=== PATIENT | female | born 1965 | race Caucasian/White ===

== ENCOUNTER 2017-01-07 17:07 | Emergency (ER) | payer BC ==
[2017-01-07] MEDS ORDERED: Acetaminophen/HYDROcodone 325-5 MG Tab PO ONE (17:41)
--- NOTE | 2017-01-07 17:47 | EDM.PDOC ---
ED HISTORY OF PRESENT ILLNESS - General Chief Complaint: Respiratory Problem Stated Complaint: [place] [facility] [place] Time Seen by Provider: 01/07/17 17:32 Source of Information: Reports: Patient History Limitations: Reports: No limitations - History of Present Illness INITIAL COMMENTS - FREE TEXT/NARRATIVE: Patient is a 51-year-old female with a history of diabetes and spontaneous pneumothorax to the right lung. She presents to the ED today complaining of increasing left lateral chest discomfort that started approximately 2 days ago with excessive coughing. Patient was evaluated here in the ED approximately one week ago to which a chest x-ray and influenza screen were obtained with negative findings. Patient was seen in the [facility] by Dr. De La Cruz yesterday and prescribed Z-Chip and also Phenergan with codeine. Patient states that she had mentioned the chest discomfort yesterday with no testing obtained. States she has popping, clicking sensation to the left lateral lower ribs. States the pain is worsened with coughing, deep inspiration, movement, and palpation. Patient states she has a history of spontaneous pneumothorax to the right lower lung requiring no surgical intervention approximately 6 years ago. States cold and coughing symptoms have been present for the past 12 days. States she has been congested and coughing up clear thick phlegm. Timing/Duration: Reports: Constant, Waxing/waning Severity: moderate Location, General: Reports: chest Quality: Reports: Ache, Sharp, Stabbing Improves with: Reports: Rest Worsens with: Reports: Other (Coughing, palpation, deep inspiration, movement) Associated Symptoms (General): Reports: chest pain, cough w sputum, shortness of breath (Mild). 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 (see below) (see hpi) - Related Data Allergies/ADRs: Allergies Allergy/AdvReac Type Severity Reaction Status Date / Time naproxen Allergy Hives Verified 01/07/17 17:23 Home Meds: Home Meds Allopurinol [Zyloprim] 300 mg PO DAILY 04/04/14 [History] Furosemide [Lasix] 20 mg PO DAILY 04/04/14 [History] Levothyroxine Sodium [Levoxyl] 150 mcg PO DAILY 04/04/14 [History] Lisinopril 5 mg PO DAILY 04/04/14 [History] Metoprolol Succinate 25 mg PO DAILY 04/04/14 [History] metFORMIN [metFORMIN XR] 500 mg PO DAILY 04/04/14 [History] Albuterol [Ventolin HFA] 1 - 2 puff INH Q6H PRN #1 inhaler 12/28/16 [Rx] Promethazine HCl/Codeine [Prometh-Codein 6.25-10 mg/5 ml] 5 ml PO Q8HR PRN #100 ml 12/28/16 [Rx] Rosuvastatin [Crestor] 20 mg PO BEDTIME 12/28/16 [History] Apremilast [Otezla] 60 mg PO BID 01/07/17 [History] Fenofibric Acid (Choline) [Fenofibric Acid] 1 tab PO DAILY 01/07/17 [History] Losartan [Cozaar] 1 tab PO DAILY 01/07/17 [History] glipiZIDE [Glipizide ER] 10 mg PO DAILY 01/07/17 [History] Past Medical History Cardiovascular History: Reports: High cholesterol, Hypertension Respiratory History: Reports: Bronchitis, recurrent Gastrointestinal History: Reports: GERD Endocrine/Metabolic History: Reports: Diabetes, type II, Hypothyroidism Dermatologic History: Reports: Psoriasis - Past Surgical History GI Surgical History: Reports: Cholecystectomy, Colonoscopy, Hernia, abdominal, Other (see below) Other GI Surgeries/Procedures: colon surgery and removed about 5 inches Female Surgical History: Reports: Hysterectomy Social & Family History - Family History Family Medical History: Noncontributory - Tobacco Use Smoking Status *Q: Never Smoker Second Hand Smoke Exposure: No - Caffeine Use Caffeine Use: Reports: Coffee - Alcohol Use Days Per Week of Alcohol Use: 1 Number of Drinks Per Day: 2 Total Drinks Per Week: 2 - Recreational Drug Use Recreational Drug Use: No ED ROS GENERAL - Review of Systems Review Of Systems: See Below Constitutional: Reports: no symptoms HEENT: Reports: Other (Sinus congestion) Respiratory: Reports: shortness of breath (Mild), wheezing, pleuritic chest pain , cough, sputum. Denies: hemoptysis Cardiovascular: Reports: Chest pain. Denies: Dyspnea on exertion, Lightheadedness, Syncope GI/Abdominal: Denies: Abdominal pain, Nausea, Vomiting : Reports: no symptoms ED EXAM, GENERAL - Physical Exam Exam: See Below Exam Limited By: No limitations General Appearance: alert, WD/WN, mild distress Eye Exam: bilateral eye: PERRL Ears: hearing grossly normal Nose: normal inspection Throat/Mouth: Normal voice, No airway compromise Neck: normal inspection, supple Respiratory/Chest: no respiratory distress, lungs clear, normal breath sounds, no accessory muscle use, other (Tenderness noted to the left lateral lower ribs along the axillary line with palpation. There is a small click/popping sensation with deep inspiration. No deformity noted) Cardiovascular: normal peripheral pulses, regular rate, rhythm GI/Abdominal: normal bowel sounds, soft, non tender Back Exam: normal inspection, full range of motion Extremities: normal inspection, non-tender, no pedal edema, normal capillary refill Neurological: alert, oriented, CN II-XII intact, normal cognition, no motor/ sensory deficits Psychiatric: normal affect, normal mood Skin Exam: Warm, Dry, Intact, Normal color, No rash Course - Vital Signs Last Recorded V/S: Last Vital Signs Temp 97.9 F 01/07/17 17:13 Pulse 85 01/07/17 19:20 Resp 18 01/07/17 19:20 BP 142/88 H 01/07/17 19:20 Pulse Ox 98 01/07/17 19:20 - Orders/Labs/Meds Orders: Active Orders 24 hr Category Date Time Status CXR [Chest 2V] [CR] Stat Exams 01/07/17 17:39 Taken Meds: Medications Discontinued Medications Generic Name Dose Route Start Last Admin Trade Name Catrachito PRN Reason Stop Dose Admin Acetaminophen/Hydrocodone Bitart 1 tab 01/07/17 17:41 01/07/17 17:45 [place] 325-5 Mg PO 01/07/17 17:42 1 tab ONETIME ONE Administration - Re-Assessments/Exams Free Text/Narrative Re-Assessment/Exam: Patient has no positive findings for PERC RULE. Thus low probability for PE. Patient was advised by [facility] that CXR is required. Patient request chest x-ray. This has been ordered. No additional labs or studies will be ordered at this time. Reviewed previous emergency department visit. For pain order [place] 5-325 tabs one by mouth. 01/07/17 17:[address] Moreno. No acute findings noted. Will discharge patient home with prescription for norco 5-325. Discharge instructions has documented. Departure - Departure Time of Disposition: 18:56 Disposition: Home, Self-Care 01 Condition: good Clinical Impression: Left-sided chest wall pain, Cough Instructions: Chest Wall Pain, [id number] Referrals: Esa Springer MD [Primary Care Provider] - Forms: ED Department Discharge, Return to Work/School Form Additional Instructions: Continue taking z-pack and cough syrup as prescribed. For pain take tylenol 650mg every 6 hours as needed. For severe pain take norco 5/325 1 tab every 6 hours as needed. Push the fluids. Ensure adequate rest. No driving this evening nor while taking the norco. Can also put heating pad to the affected area for pain relief. Followup with PCP in the next week if symptoms have not resolved. Return to the E.D. for any new or worsening symptoms. - My Orders Last 24 Hours: My Active Orders 01/07/17 17:39 CXR [Chest 2V] [CR] Stat - Assessment/Plan Last 24 Hours: My Active Orders 01/07/17 17:39 CXR [Chest 2V] [CR] Stat
[2017-01-07 19:22] VITALS: BP 142/88
--- NOTE | 2017-01-08 10:16 | CR ---
Chest: Two views of the chest were obtained. Comparison: Previous chest x-ray of 12/28/16. Heart size and mediastinum are normal. Lungs are clear. Bony structures are unremarkable for the patient's age. Impression: 1. Nothing acute is identified on two-view chest x-ray. Diagnostic code #1
== END 2017-01-07 19:15 | disposition home or self-care (01) ==
LOC: JD.ED 17:07
DX: R07.89 Other chest pain (principal); R05 Cough; I10 Essential (primary) hypertension; E78.00 Pure hypercholesterolemia, unspecified; K21.9 Gastro-esophageal reflux disease without esophagitis; E11.9 Type 2 diabetes mellitus without complications; L40.9 Psoriasis, unspecified; Z90.49 Acquired absence of other specified parts of digestive tract; Z98.890 Other specified postprocedural states; Z90.710 Acquired absence of both cervix and uterus; Z79.84 Long term (current) use of oral hypoglycemic drugs; Z79.899 Other long term (current) drug therapy; Z88.8 Allergy status to other drugs, medicaments and biological substances
CPT/HCPCS: 71020; 99285; A9270; 99283

== ENCOUNTER 2019-07-29 10:37 | Observation (INO) | payer BC ==
[2019-07-29] MEDS ORDERED: Sodium Chloride 0.9% 10 ML Syringe FLUSH PRN (11:13)
[2019-07-29] MEDS ORDERED: Sodium Chloride 0.9% 1,000 ML IV ONE ×2 (11:13→13:30)
--- NOTE | 2019-07-29 11:22 | EDM.PDOC ---
ED HPI GENERAL MEDICAL PROBLEM - General Chief Complaint: General Stated Complaint: FEELS LIKE PASSING OUT Time Seen by Provider: 07/29/19 11:00 Source of Information: Reports: Patient History Limitations: Reports: No Limitations - History of Present Illness INITIAL COMMENTS - FREE TEXT/NARRATIVE: 54-year-old female present for evaluation and treatment of lightheadedness. Patient reports between 9:30 and 10:00 this morning she was sitting at her desk at work. She states that she got up and walked to the back room to get [employer] delivery. She states that her left eye started burning and her left upper lip started a burning. She states that she couldn't talk or write. She felt like her throat was swelling. She also felt like her legs were weak and she was lightheaded. She did not fall or pass out. She reports at this time upon arrival in the ER the burning to her lip and have improved. She states that she is now talking like normal and at this time she is feeling much better. She states this whole episode lasted maybe 30 minutes to an hour. She she reports weakness in the bilateral legs which is also improving as well. She denies any chest pain or shortness of breath associated with this. A friend is present at the bedside and states that she sounded like she was short of breath. She did have a headache that is now improving. She denies any numbness or tingling in her arms or legs. At this time she only feels shaky. She denies any recent trauma such as falls or motor vehicle accidents. Denies any recent cough or cold symptoms. She states that she did take to sips of her coffee earlier before this started but that was not seen on the normal. Primary care providers Dr. Crespo. She is a type II diabetic. She is not watch he closely normally. No history of any CVAs or MIs. Onset: Today, Sudden Duration: Improving - Related Data Allergies Allergy/AdvReac Type Severity Reaction Status Date / Time naproxen Allergy Hives Verified 07/29/19 10:52 Home Meds: Home Meds Allopurinol [Zyloprim] 300 mg PO DAILY 04/04/14 [History] Furosemide [Lasix] 20 mg PO DAILY 04/04/14 [History] Levothyroxine Sodium [Levoxyl] 150 mcg PO DAILY 04/04/14 [History] Metoprolol Succinate 50 mg PO DAILY 04/04/14 [History] metFORMIN [metFORMIN XR] 500 mg PO BID 04/04/14 [History] Rosuvastatin [Crestor] 20 mg PO BEDTIME 12/28/16 [History] Apremilast [Otezla] 30 mg PO BID 01/07/17 [History] Fenofibric Acid (Choline) [Fenofibric Acid] 145 mg PO DAILY 01/07/17 [History] Losartan [Cozaar] 1 tab PO DAILY 01/07/17 [History] glipiZIDE [Glipizide ER] 10 mg PO DAILY 01/07/17 [History] Aspirin [Halfprin] 81 mg PO DAILY 07/29/19 [History] Omeprazole 20 mg PO DAILY 07/29/19 [History] PARoxetine [Paxil] 10 mg PO BEDTIME 07/29/19 [History] Pramipexole [Mirapex] 1 mg PO DAILY 07/29/19 [History] Past Medical History Cardiovascular History: Reports: High Cholesterol, Hypertension Respiratory History: Reports: Bronchitis, Recurrent Gastrointestinal History: Reports: GERD Endocrine/Metabolic History: Reports: Diabetes, Type II, Hypothyroidism Dermatologic History: Reports: Psoriasis - Past Surgical History GI Surgical History: Reports: Cholecystectomy, Colonoscopy, Hernia, Abdominal Female Surgical History: Reports: Hysterectomy Social & Family History - Family History Family Medical History: Noncontributory - Tobacco Use Smoking Status *Q: Never Smoker - Caffeine Use Caffeine Use: Reports: None - Recreational Drug Use Recreational Drug Use: No ED ROS GENERAL - Review of Systems Review Of Systems: See Below Constitutional: Denies: Fever HEENT: Reports: Throat Swelling (earler, now reolved), Other (reports burning to the left eye and left upper lip which has now reolved) Respiratory: Denies: Shortness of Breath, Cough Cardiovascular: Denies: Chest Pain Neurological: Reports: Headache (improving), Trouble Speaking (earlier, now resolved), Weakness (bilteral lower extremities, improvign), Other (unable to write earlier, now resolved). Denies: Numbness, Syncope, Tingling ED EXAM, GENERAL - Physical Exam Exam: See Below Exam Limited By: No Limitations General Appearance: Alert, WD/WN, No Apparent Distress Eye Exam: Bilateral Eye: EOMI, Normal Inspection, PERRL Ears: Normal External Exam, Normal Canal, Hearing Grossly Normal, Normal TMs Nose: Normal Inspection Throat/Mouth: Normal Inspection, Normal Lips, Normal Voice, No Airway Compromise Neck: Normal Inspection, Supple, Non-Tender, Full Range of Motion. No: Carotid Bruit Respiratory/Chest: No Respiratory Distress, Lungs Clear, Normal Breath Sounds Cardiovascular: Normal Peripheral Pulses, Regular Rate, Rhythm, No Edema, No Murmur GI/Abdominal: No Distention Extremities: Normal Inspection, Normal Range of Motion Neurological: Alert, Oriented, CN II-XII Intact, Normal Cognition, Normal Gait, No Motor/Sensory Deficits, Other (Investment Strategist strength, dorsiflexion and plantar flexion are all 5 out of 5 bilaterally. Normal [id number] testing. No pronator drift. Normal [id number] testing.) Psychiatric: Normal Affect, Normal Mood Skin Exam: Warm, Dry, Normal Color EKG INTERPRETATION EKG Date: 07/29/19 Time: 11:20 Rhythm: NSR Rate (Beats/Min): 54 Luna: Normal P-Wave: Present QRS: Normal ST-T: Normal QT: Normal EKG Interpretation Comments: NSR at 54 bpm. Q waves inferior and anterior leads. Reviewed by myself and Dr. Moreno Course - Vital Signs Last Recorded V/S: Last Vital Signs Temp 98.1 F 07/29/19 10:48 Pulse 55 L 07/29/19 10:48 Resp 16 07/29/19 10:48 BP 155/92 H 07/29/19 10:48 Pulse Ox 97 07/29/19 10:48 Orthostatic Blood Pressure [ 155/82 Standing] Orthostatic Blood Pressure [ 168/77 Sitting] Orthostatic Blood Pressure [ 156/74 Supine] - Orders/Labs/Meds Orders: Active Orders 24 hr Category Date Time Status Patient Status [ADT] Routine ADT 07/29/19 13:52 Ordered Blood Glucose Check, Bedside [RC] ONETIME Care 07/29/19 10:58 Active Cardiac Monitoring [RC] . DIRECTED Care 07/29/19 11:13 Active EKG Documentation Completion [RC] ASDIRECTED Care 07/29/19 11:13 Active Orthostatic Vital Signs [RC] ASDIRECTED Care 07/29/19 10:59 Active Peripheral IV Care [RC] . DIRECTED Care 07/29/19 11:13 Active Sodium Chloride 0.9% [Normal Saline] 1,000 ml Med 07/29/19 13:30 Ordered IV ONETIME Sodium Chloride 0.9% [Saline Flush] Med 07/29/19 11:13 Active 10 ml FLUSH ASDIRECTED PRN Peripheral IV Insertion Adult [OM.PC] Routine Oth 07/29/19 11:13 Ordered EKG 12 Lead [EK] Stat Ther 07/29/19 11:13 Ordered Medication Orders Sodium Chloride (Normal Saline) 1,000 mls @ 100 mls/hr IV ONETIME ONE Stop: 07/29/19 23:29 Sodium Chloride (Saline Flush) 10 ml FLUSH ASDIRECTED PRN PRN Reason: Keep Vein Open Last Admin: 07/29/19 11:56 Dose: 10 ml Labs: Laboratory Tests 07/29/19 07/29/19 07/29/19 Range/Units 11:35 11:35 11:35 WBC 5.59 (3.98-10.04) K/mm3 RBC 4.57 (3.98-5.22) M/mm3 Hgb 12.7 (11.2-15.7) gm/dl Hct 39.5 (34.1-44.9) % MCV 86.4 (79.4-94.8) fl MCH 27.8 (25.6-32.2) pg MCHC 32.2 (32.2-35.5) g/dl RDW Std Deviation 41.4 (36.4-46.3) fL Plt Count 309 (182-369) K/mm3 MPV 9.8 (9.4-12.3) fl Neut % (Auto) 55.2 (34.0-71.1) % Lymph % (Auto) 32.7 (19.3-51.7) % [place] % (Auto) 9.3 (4.7-12.5) % Eos % (Auto) 2.3 (0.7-5.8) Baso % (Auto) 0.5 (0.1-1.2) % Neut # (Auto) 3.08 (1.56-6.13) K/mm3 Lymph # (Auto) 1.83 (1.18-3.74) K/mm3 [place] # (Auto) 0.52 H (0.24-0.36) K/mm3 Eos # (Auto) 0.13 (0.04-0.36) K/mm3 Baso # (Auto) 0.03 (0.01-0.08) K/mm3 Sodium 139 (136-145) mEq/L Potassium 4.1 (3.5-5.1) mEq/L Chloride 105 (98-107) mEq/L Carbon Dioxide 25 (21-32) mEq/L Anion Gap 13.1 (5-15) BUN 21 H (7-18) mg/dL Creatinine 0.8 (0.55-1.02) mg/dL Est Cr Clr Drug Dosing 60.66 mL/min Estimated GFR (MDRD) > 60 (>60) mL/min BUN/Creatinine Ratio 26.3 H (14-18) Glucose 93 (74-106) mg/dL POC Glucose (70-105) mg/dL Calcium 9.8 (8.5-10.1) mg/dL Magnesium 1.8 (1.8-2.4) mg/dl Total Bilirubin 0.3 (0.2-1.0) mg/dL AST 26 (15-37) U/L ALT 66 H (14-59) U/L Alkaline Phosphatase 63 (46-116) U/L Troponin I < 0.017 (0.00-0.056) ng/mL Total Protein 7.8 (6.4-8.2) g/dl Albumin 4.0 (3.4-5.0) g/dl Globulin 3.8 gm/dL Albumin/Globulin Ratio 1.1 (1-2) TSH 3rd Generation 0.415 (0.358-3.74) uIU/mL Urine Color (Yellow) Urine Appearance (Clear) Urine pH (5.0-8.0) Ur Specific [place] (1.005-1.030) Urine Protein (Negative) Urine Glucose (UA) (Negative) Urine Ketones (Negative) Urine Occult Blood (Negative) Urine Nitrite (Negative) Urine Bilirubin (Negative) Urine Urobilinogen (0.2-1.0) Ur Leukocyte Esterase (Negative) Urine RBC (0-5) /hpf Urine WBC (0-5) /hpf Ur Squamous Epith Cells (0-5) /hpf Urine Bacteria (FEW) /hpf Urine Mucus (FEW) /hpf 07/29/19 07/29/19 Range/Units 12:19 12:35 WBC (3.98-10.04) K/mm3 RBC (3.98-5.22) M/mm3 Hgb (11.2-15.7) gm/dl Hct (34.1-44.9) % MCV (79.4-94.8) fl MCH (25.6-32.2) pg MCHC (32.2-35.5) g/dl RDW Std Deviation (36.4-46.3) fL Plt Count (182-369) K/mm3 MPV (9.4-12.3) fl Neut % (Auto) (34.0-71.1) % Lymph % (Auto) (19.3-51.7) % [place] % (Auto) (4.7-12.5) % Eos % (Auto) (0.7-5.8) Baso % (Auto) (0.1-1.2) % Neut # (Auto) (1.56-6.13) K/mm3 Lymph # (Auto) (1.18-3.74) K/mm3 [place] # (Auto) (0.24-0.36) K/mm3 Eos # (Auto) (0.04-0.36) K/mm3 Baso # (Auto) (0.01-0.08) K/mm3 Sodium (136-145) mEq/L Potassium (3.5-5.1) mEq/L Chloride (98-107) mEq/L Carbon Dioxide (21-32) mEq/L Anion Gap (5-15) BUN (7-18) mg/dL Creatinine (0.55-1.02) mg/dL Est Cr Clr Drug Dosing mL/min Estimated GFR (MDRD) (>60) mL/min BUN/Creatinine Ratio (14-18) Glucose (74-106) mg/dL POC Glucose 81 (70-105) mg/dL Calcium (8.5-10.1) mg/dL Magnesium (1.8-2.4) mg/dl Total Bilirubin (0.2-1.0) mg/dL AST (15-37) U/L ALT (14-59) U/L Alkaline Phosphatase (46-116) U/L Troponin I (0.00-0.056) ng/mL Total Protein (6.4-8.2) g/dl Albumin (3.4-5.0) g/dl Globulin gm/dL Albumin/Globulin Ratio (1-2) TSH 3rd Generation (0.358-3.74) uIU/mL Urine Color Light yellow (Yellow) Urine Appearance Clear (Clear) Urine pH 6.0 (5.0-8.0) Ur Specific [place] 1.020 (1.005-1.030) Urine Protein Negative (Negative) Urine Glucose (UA) Negative (Negative) Urine Ketones Negative (Negative) Urine Occult Blood Negative (Negative) Urine Nitrite Negative (Negative) Urine Bilirubin Negative (Negative) Urine Urobilinogen 0.2 (0.2-1.0) Ur Leukocyte Esterase Trace H (Negative) Urine RBC Not seen (0-5) /hpf Urine WBC 0-5 (0-5) /hpf Ur Squamous Epith Cells 5-10 H (0-5) /hpf Urine Bacteria Not seen (FEW) /hpf Urine Mucus Not seen (FEW) /hpf Meds: Medications Generic Name Dose Route Start Last Admin Trade Name Freq PRN Reason Stop Dose Admin Sodium Chloride 1,000 mls @ 100 mls/hr 07/29/19 13:30 Normal Saline IV 07/29/19 23:29 ONETIME ONE Sodium Chloride 10 ml 07/29/19 11:13 07/29/19 11:56 Saline Flush FLUSH 10 ml ASDIRECTED PRN Administration Keep Vein Open Discontinued Medications Generic Name Dose Route Start Last Admin Trade Name Freq PRN Reason Stop Dose Admin Sodium Chloride 1,000 mls @ 999 mls/hr 07/29/19 11:13 07/29/19 11:56 Normal Saline IV 07/29/19 12:13 999 mls/hr ONETIME ONE Administration - Radiology Interpretation Free Text/Narrative:: Chest: PA view of the chest was obtained. Comparison: Prior chest x-ray of 01/07/17. Heart size and mediastinum are normal. Lungs are clear with no acute parenchymal change. Bony structures are grossly intact. Impression: 1. Nothing acute is appreciated on PA chest x-ray. Head CT Technique: Multiple axial sections through the brain were obtained. Intravenous contrast was not utilized. Comparison: Prior head CT study of 02/12/13. Findings: Ventricles along with basal cisterns and sulci over the convexities are within normal limits for the patient's age. No abnormal parenchymal densities are seen. No evidence of intracranial hemorrhage. No midline shift or mass effect is seen. Bone window settings were reviewed which show no acute calvarial abnormality. Visualized paranasal sinuses are clear. Mastoid sinuses are also clear. Impression: 1. Nothing acute is appreciated on noncontrast head CT exam. - Re-Assessments/Exams Free Text/Narrative Re-Assessment/Exam: 07/29/19 11:24 At this time working diagnosis is a TIA versus atypical migraine. 07/29/19 13:21 I reviewed the labs and imaging EKG with the patient. At this time she states that she still feels wobbly when she walks. She does still appear to be anxious about the whole ordeal. I'm concerned that she did have a TIA. Her ABCD 2 score is 4.6 indicating her wrist for 2 days CVA is 4.1% and observation should be considered. I discussed this with the patient and she is agreeable to this. 07/29/19 13:[address] Hunter. He agrees to the admission. Admit observation , med/surg with tele. We'll admit for TIA. Patient made aware. Resting comfortable. Departure - Departure Time of Disposition: 14:04 Disposition: Refer to Observation Condition: Fair Clinical Impression: TIA (transient ischemic attack) - Discharge Information *PRESCRIPTION DRUG MONITORING PROGRAM REVIEWED*: No *COPY OF PRESCRIPTION DRUG MONITORING REPORT IN PATIENT SHELBY: No Referrals: Esa Springer MD [Primary Care Provider] - Forms: ED Department Discharge Additional Instructions: Admitted to Dr. Hunter, med/surg with tele. Obs status for TIA. - My Orders Last 24 Hours: My Active Orders 07/29/19 10:58 Blood Glucose Check, Bedside [RC] ONETIME 07/29/19 10:59 Orthostatic Vital Signs [RC] ASDIRECTED 07/29/19 11:13 Cardiac Monitoring [RC] . DIRECTED EKG Documentation Completion [RC] ASDIRECTED Peripheral IV Care [RC] . DIRECTED Sodium Chloride 0.9% [Saline Flush] 10 ml FLUSH ASDIRECTED PRN Peripheral IV Insertion Adult [OM.PC] Routine EKG 12 Lead [EK] Stat 07/29/19 13:30 Sodium Chloride 0.9% [Normal Saline] 1,000 ml IV ONETIME 07/29/19 13:52 Patient Status [ADT] Routine - Assessment/Plan Last 24 Hours: My Active Orders 07/29/19 10:58 Blood Glucose Check, Bedside [RC] ONETIME 07/29/19 10:59 Orthostatic Vital Signs [RC] ASDIRECTED 07/29/19 11:13 Cardiac Monitoring [RC] . DIRECTED EKG Documentation Completion [RC] ASDIRECTED Peripheral IV Care [RC] . DIRECTED Sodium Chloride 0.9% [Saline Flush] 10 ml FLUSH ASDIRECTED PRN Peripheral IV Insertion Adult [OM.PC] Routine EKG 12 Lead [EK] Stat 07/29/19 13:30 Sodium Chloride 0.9% [Normal Saline] 1,000 ml IV ONETIME 07/29/19 13:52 Patient Status [ADT] Routine
--- NOTE | 2019-07-29 12:28 | CR ---
Chest: PA view of the chest was obtained. Comparison: Prior chest x-ray of 01/07/17. Heart size and mediastinum are normal. Lungs are clear with no acute parenchymal change. Bony structures are grossly intact. Impression: 1. Nothing acute is appreciated on PA chest x-ray. Diagnostic code #1
--- NOTE | 2019-07-29 12:28 | CT ---
Head CT Technique: Multiple axial sections through the brain were obtained. Intravenous contrast was not utilized. Comparison: Prior head CT study of 02/12/13. Findings: Ventricles along with basal cisterns and sulci over the convexities are within normal limits for the patient's age. No abnormal parenchymal densities are seen. No evidence of intracranial hemorrhage. No midline shift or mass effect is seen. Bone window settings were reviewed which show no acute calvarial abnormality. Visualized paranasal sinuses are clear. Mastoid sinuses are also clear. Impression: 1. Nothing acute is appreciated on noncontrast head CT exam. Diagnostic code #1
[2019-07-29] MEDS ORDERED: Ondansetron 4 MG Tab.DIS PO PRN (17:37)
[2019-07-29] MEDS ORDERED: Acetaminophen 325 MG Tab PO PRN (17:37)
--- NOTE | 2019-07-29 17:44 | PCM.HP.2 ---
<Cameron Huffman - Last Filed: 07/29/19 17:33> H&P History of Present Illness - General Date of Service: 07/29/19 Admit Problem/Dx: Admission Diagnosis/Problem Admission Diagnosis/Problem TIA, Transient ischemic attack Source of Information: Patient, Family History Limitations: Reports: No Limitations - History of Present Illness Initial Comments - Free Text/Narative: Pt is 54yo female with hx of hyperlipidemia, hypertension, and T2DM who presents today upon admission from ED with complaint of transient ischemic attack. 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 During this time she also felt that she was having difficulty speaking, which her coworkers noticed as well. She describes the feeling as if she could think of the words, but they were not coming out the way she intended. She was able to say short phrases like "I'm fine!", but was otherwise not able to fully communicate. She states she attempted to speak with a customer on the phone and was not able to do so. She noticed she was also not able to write on paper the way she normally does. At this time she felt weakness in her knees, as if they would give out. Pt estimates the entire episode lasted about 30 minutes before she and her significant other came to the emergency room. Pt's symptoms have since resolved. She notes that her left upper lip continues to have a strange sensation that she describes as 'swollen', and she is experiencing sporadic headaches, although this is not unusual for her. She also states that when she walks she feels like she wants to pull to the left. She has family history of cardiovascular complaints, with her mother undergoing triple bypass surgery. - Related Data Allergies/Adverse Reactions: Allergies Allergy/AdvReac Type Severity Reaction Status Date / Time naproxen Allergy Hives Verified 07/29/19 10:52 Home Medications: Home Meds Allopurinol [Zyloprim] 300 mg PO DAILY 04/04/14 [History] Furosemide [Lasix] 20 mg PO DAILY 04/04/14 [History] Levothyroxine Sodium [Levoxyl] 150 mcg PO DAILY 04/04/14 [History] Metoprolol Succinate 50 mg PO BEDTIME 04/04/14 [History] metFORMIN [metFORMIN XR] 500 mg PO BID 04/04/14 [History] Rosuvastatin [Crestor] 40 mg PO DAILY 12/28/16 [History] Apremilast [Otezla] 30 mg PO BID 01/07/17 [History] Fenofibric Acid (Choline) [Fenofibric Acid] 145 mg PO BEDTIME 01/07/17 [History] Losartan [Cozaar] 100 mg PO DAILY 01/07/17 [History] glipiZIDE [Glipizide ER] 10 mg PO BEDTIME 01/07/17 [History] PARoxetine [Paxil] 10 mg PO BEDTIME 07/29/19 [History] Past Medical History Cardiovascular History: Reports: High Cholesterol, Hypertension Respiratory History: Reports: Bronchitis, Recurrent Gastrointestinal History: Reports: GERD Endocrine/Metabolic History: Reports: Diabetes, Type II, Hypothyroidism Dermatologic History: Reports: Psoriasis - Past Surgical History GI Surgical History: Reports: Cholecystectomy, Colonoscopy, Hernia, Abdominal Female Surgical History: Reports: Hysterectomy Social & Family History - Family History Family Medical History: Noncontributory - Tobacco Use Smoking Status *Q: Never Smoker - Caffeine Use Caffeine Use: Reports: None - Recreational Drug Use Recreational Drug Use: No H&P Review of Systems - Review of Systems: General: Reports: Weakness HEENT: Reports: Other ('swelling' sensation in left upper lip) Pulmonary: Reports: No Symptoms Cardiovascular: Reports: No Symptoms Gastrointestinal: Reports: No Symptoms Genitourinary: Reports: No Symptoms Musculoskeletal: Reports: No Symptoms Skin: Reports: No Symptoms Psychiatric: Reports: No Symptoms Neurological: Reports: Headache, Paresthesia, Trouble Speaking, Difficulty Walking Hematologic/Lymphatic: Reports: No Symptoms Immunologic: Reports: No Symptoms Exam - Vital Signs Vital Signs: Last Vital Signs Temp 98.1 F 07/29/19 10:48 Pulse 55 L 07/29/19 10:48 Resp 16 07/29/19 10:48 BP 155/92 H 07/29/19 10:48 Pulse Ox 97 07/29/19 10:48 Orthostatic Blood Pressure [ 155/82 Standing] Orthostatic Blood Pressure [ 168/77 Sitting] Orthostatic Blood Pressure [ 156/74 Supine] Weight: 187 lb - Exam General: Alert, Oriented, Cooperative HEENT: Conjunctiva Clear, EACs Clear, EOMI, Hearing Intact, Mucosa Moist & [place] , Nares Patent, Normal Nasal Septum, Posterior Pharynx Clear, Pupils Equal, Pupils Reactive Neck: Supple, Trachea Midline, Full Range of Motion. No: Lymphadenopathy, JVD, Thyromegaly Lungs: Clear to Auscultation, Normal Respiratory Effort. No: Crackles, Rales, Rhonchi, Rub, Wheezing Cardiovascular: Regular Rate, Regular Rhythm, Normal S1, Normal S2 GI/Abdominal Exam: Normal Bowel Sounds, Soft, Non-Tender, No Organomegaly, No Distention, No Mass (Female) Exam: Deferred Rectal (Female) Exam: Deferred Back Exam: Normal Inspection, Full Range of Motion. No: CVA Tenderness (L), CVA Tenderness (R) Extremities: Normal Inspection, Normal Range of Motion, Non-Tender, No Pedal Edema. No: Joint Swelling, Leg Pain Skin: Warm, Dry, Intact. No: Rash, Petechia, Ecchymosis Neurological: Cranial Nerves Intact, Reflexes Equal Bilateral, Strength Equal Bilateral, Normal Gait, Normal Speech, Normal Tone, Sensation Intact. No: Focal Deficit Neuro Extensive - Mental Status: Alert, Oriented x3, Normal Mood/Affect, Normal Cognition, Memory Intact Neuro Extensive - Motor, Sensory, Reflexes: CN II-XII Intact, Normal Gait, Normal Reflexes. No: Dysarthria, Receptive Aphasia, Expressive Aphasia Psychiatric: Alert, Normal Affect, Normal Mood. No: Agitated - Patient Data Lab Results Last 24 hrs: Laboratory Results - last 24 hr 07/29/19 07/29/19 07/29/19 Range/Units 11:35 11:35 11:35 WBC 5.59 (3.98-10.04) K/mm3 RBC 4.57 (3.98-5.22) M/mm3 Hgb 12.7 (11.2-15.7) gm/dl Hct 39.5 (34.1-44.9) % MCV 86.4 (79.4-94.8) fl MCH 27.8 (25.6-32.2) pg MCHC 32.2 (32.2-35.5) g/dl RDW Std Deviation 41.4 (36.4-46.3) fL Plt Count 309 (182-369) K/mm3 MPV 9.8 (9.4-12.3) fl Neut % (Auto) 55.2 (34.0-71.1) % Lymph % (Auto) 32.7 (19.3-51.7) % [place] % (Auto) 9.3 (4.7-12.5) % Eos % (Auto) 2.3 (0.7-5.8) Baso % (Auto) 0.5 (0.1-1.2) % Neut # (Auto) 3.08 (1.56-6.13) K/mm3 Lymph # (Auto) 1.83 (1.18-3.74) K/mm3 [place] # (Auto) 0.52 H (0.24-0.36) K/mm3 Eos # (Auto) 0.13 (0.04-0.36) K/mm3 Baso # (Auto) 0.03 (0.01-0.08) K/mm3 Sodium 139 (136-145) mEq/L Potassium 4.1 (3.5-5.1) mEq/L Chloride 105 (98-107) mEq/L Carbon Dioxide 25 (21-32) mEq/L Anion Gap 13.1 (5-15) BUN 21 H (7-18) mg/dL Creatinine 0.8 (0.55-1.02) mg/dL Est Cr Clr Drug Dosing 60.66 mL/min Estimated GFR (MDRD) > 60 (>60) mL/min BUN/Creatinine Ratio 26.3 H (14-18) Glucose 93 (74-106) mg/dL POC Glucose (70-105) mg/dL Calcium 9.8 (8.5-10.1) mg/dL Magnesium 1.8 (1.8-2.4) mg/dl Total Bilirubin 0.3 (0.2-1.0) mg/dL AST 26 (15-37) U/L ALT 66 H (14-59) U/L Alkaline Phosphatase 63 (46-116) U/L Troponin I < 0.017 (0.00-0.056) ng/mL Total Protein 7.8 (6.4-8.2) g/dl Albumin 4.0 (3.4-5.0) g/dl Globulin 3.8 gm/dL Albumin/Globulin Ratio 1.1 (1-2) TSH 3rd Generation 0.415 (0.358-3.74) uIU/mL Urine Color (Yellow) Urine Appearance (Clear) Urine pH (5.0-8.0) Ur Specific [place] (1.005-1.030) Urine Protein (Negative) Urine Glucose (UA) (Negative) Urine Ketones (Negative) Urine Occult Blood (Negative) Urine Nitrite (Negative) Urine Bilirubin (Negative) Urine Urobilinogen (0.2-1.0) Ur Leukocyte Esterase (Negative) Urine RBC (0-5) /hpf Urine WBC (0-5) /hpf Ur Squamous Epith Cells (0-5) /hpf Urine Bacteria (FEW) /hpf Urine Mucus (FEW) /hpf 07/29/19 07/29/19 Range/Units 12:19 12:35 WBC (3.98-10.04) K/mm3 RBC (3.98-5.22) M/mm3 Hgb (11.2-15.7) gm/dl Hct (34.1-44.9) % MCV (79.4-94.8) fl MCH (25.6-32.2) pg MCHC (32.2-35.5) g/dl RDW Std Deviation (36.4-46.3) fL Plt Count (182-369) K/mm3 MPV (9.4-12.3) fl Neut % (Auto) (34.0-71.1) % Lymph % (Auto) (19.3-51.7) % [place] % (Auto) (4.7-12.5) % Eos % (Auto) (0.7-5.8) Baso % (Auto) (0.1-1.2) % Neut # (Auto) (1.56-6.13) K/mm3 Lymph # (Auto) (1.18-3.74) K/mm3 [place] # (Auto) (0.24-0.36) K/mm3 Eos # (Auto) (0.04-0.36) K/mm3 Baso # (Auto) (0.01-0.08) K/mm3 Sodium (136-145) mEq/L Potassium (3.5-5.1) mEq/L Chloride (98-107) mEq/L Carbon Dioxide (21-32) mEq/L Anion Gap (5-15) BUN (7-18) mg/dL Creatinine (0.55-1.02) mg/dL Est Cr Clr Drug Dosing mL/min Estimated GFR (MDRD) (>60) mL/min BUN/Creatinine Ratio (14-18) Glucose (74-106) mg/dL POC Glucose 81 (70-105) mg/dL Calcium (8.5-10.1) mg/dL Magnesium (1.8-2.4) mg/dl Total Bilirubin (0.2-1.0) mg/dL AST (15-37) U/L ALT (14-59) U/L Alkaline Phosphatase (46-116) U/L Troponin I (0.00-0.056) ng/mL Total Protein (6.4-8.2) g/dl Albumin (3.4-5.0) g/dl Globulin gm/dL Albumin/Globulin Ratio (1-2) TSH 3rd Generation (0.358-3.74) uIU/mL Urine Color Light yellow (Yellow) Urine Appearance Clear (Clear) Urine pH 6.0 (5.0-8.0) Ur Specific [place] 1.020 (1.005-1.030) Urine Protein Negative (Negative) Urine Glucose (UA) Negative (Negative) Urine Ketones Negative (Negative) Urine Occult Blood Negative (Negative) Urine Nitrite Negative (Negative) Urine Bilirubin Negative (Negative) Urine Urobilinogen 0.2 (0.2-1.0) Ur Leukocyte Esterase Trace H (Negative) Urine RBC Not seen (0-5) /hpf Urine WBC 0-5 (0-5) /hpf Ur Squamous Epith Cells 5-10 H (0-5) /hpf Urine Bacteria Not seen (FEW) /hpf Urine Mucus Not seen (FEW) /hpf Result Diagrams: 07/29/19 11:35 07/29/19 11:35 Problem List Initiated/Reviewed/Updated: Yes Orders Last 24hrs: Active Orders 24 hr Category Date Time Status Patient Status [ADT] Routine ADT 07/29/19 13:52 Active Blood Glucose Check, Bedside [RC] ONETIME Care 07/29/19 10:58 Active Orthostatic Vital Signs [RC] ASDIRECTED Care 07/29/19 10:59 Active Peripheral IV Care [RC] Q2HR Care 07/29/19 11:13 Active Aspirin [Halfprin] Med 07/29/19 17:30 Active 81 mg PO DAILY Sodium Chloride 0.9% [Saline Flush] Med 07/29/19 11:13 Active 10 ml FLUSH ASDIRECTED PRN Peripheral IV Insertion Adult [OM.PC] Routine Oth 07/29/19 11:13 Ordered EKG 12 Lead [EK] Stat Ther 07/29/19 11:13 Ordered Medication Orders Aspirin (Halfprin) 81 mg PO DAILY [facility] Sodium Chloride (Saline Flush) 10 ml FLUSH ASDIRECTED PRN PRN Reason: Keep Vein Open Last Admin: 07/29/19 11:56 Dose: 10 ml Assessment/Plan Comment:: Assessment: Acute: Transient ischemic attack - Stroke-like symptoms lasting ~30minutes - has some residual symptoms of headache and altered sensation, need to rule out infarction - Strong history of hyperlipidemia, hypertension, T2DM - MRI of head - MRA of neck - 2D echo - telemetry monitoring for arrhythmia - aspirin therapy 81 mg PO Chronic: hyperlipidemia, hypertension, T2DM, anxiety Plan: Admit to observation with telemetry Normal diet Activity as tolerated MRI of head MRA of neck 2D echo Aspiring therapy 81mg PO Resume home meds Code status: full code LOS ~24 hours Prognosis - good <Yashira Spears III - Last Filed: 07/29/19 19:19> H&P History of Present Illness - General Admit Problem/Dx: Admission Diagnosis/Problem Admission Diagnosis/Problem TIA, Transient ischemic attack H&P Review of Systems - Review of Systems: Review Of Systems: See Below Exam - Exam Exam: See Below - Vital Signs Vital Signs: Last Vital Signs Temp 97.9 F 07/29/19 16:31 Pulse 64 07/29/19 16:31 Resp 16 07/29/19 16:31 BP 137/85 07/29/19 16:31 Pulse Ox 92 L 07/29/19 16:31 Orthostatic Blood Pressure [ 155/82 Standing] Orthostatic Blood Pressure [ 168/77 Sitting] Orthostatic Blood Pressure [ 156/74 Supine] - Patient Data Lab Results Last 24 hrs: Laboratory Results - last 24 hr 07/29/19 07/29/19 07/29/19 Range/Units 11:35 11:35 11:35 WBC 5.59 (3.98-10.04) K/mm3 RBC 4.57 (3.98-5.22) M/mm3 Hgb 12.7 (11.2-15.7) gm/dl Hct 39.5 (34.1-44.9) % MCV 86.4 (79.4-94.8) fl MCH 27.8 (25.6-32.2) pg MCHC 32.2 (32.2-35.5) g/dl RDW Std Deviation 41.4 (36.4-46.3) fL Plt Count 309 (182-369) K/mm3 MPV 9.8 (9.4-12.3) fl Neut % (Auto) 55.2 (34.0-71.1) % Lymph % (Auto) 32.7 (19.3-51.7) % [place] % (Auto) 9.3 (4.7-12.5) % Eos % (Auto) 2.3 (0.7-5.8) Baso % (Auto) 0.5 (0.1-1.2) % Neut # (Auto) 3.08 (1.56-6.13) K/mm3 Lymph # (Auto) 1.83 (1.18-3.74) K/mm3 [place] # (Auto) 0.52 H (0.24-0.36) K/mm3 Eos # (Auto) 0.13 (0.04-0.36) K/mm3 Baso # (Auto) 0.03 (0.01-0.08) K/mm3 Sodium 139 (136-145) mEq/L Potassium 4.1 (3.5-5.1) mEq/L Chloride 105 (98-107) mEq/L Carbon Dioxide 25 (21-32) mEq/L Anion Gap 13.1 (5-15) BUN 21 H (7-18) mg/dL Creatinine 0.8 (0.55-1.02) mg/dL Est Cr Clr Drug Dosing 60.66 mL/min Estimated GFR (MDRD) > 60 (>60) mL/min BUN/Creatinine Ratio 26.3 H (14-18) Glucose 93 (74-106) mg/dL POC Glucose (70-105) mg/dL Calcium 9.8 (8.5-10.1) mg/dL Magnesium 1.8 (1.8-2.4) mg/dl Total Bilirubin 0.3 (0.2-1.0) mg/dL AST 26 (15-37) U/L ALT 66 H (14-59) U/L Alkaline Phosphatase 63 (46-116) U/L Troponin I < 0.017 (0.00-0.056) ng/mL Total Protein 7.8 (6.4-8.2) g/dl Albumin 4.0 (3.4-5.0) g/dl Globulin 3.8 gm/dL Albumin/Globulin Ratio 1.1 (1-2) TSH 3rd Generation 0.415 (0.358-3.74) uIU/mL Urine Color (Yellow) Urine Appearance (Clear) Urine pH (5.0-8.0) Ur Specific [place] (1.005-1.030) Urine Protein (Negative) Urine Glucose (UA) (Negative) Urine Ketones (Negative) Urine Occult Blood (Negative) Urine Nitrite (Negative) Urine Bilirubin (Negative) Urine Urobilinogen (0.2-1.0) Ur Leukocyte Esterase (Negative) Urine RBC (0-5) /hpf Urine WBC (0-5) /hpf Ur Squamous Epith Cells (0-5) /hpf Urine Bacteria (FEW) /hpf Urine Mucus (FEW) /hpf 07/29/19 07/29/19 Range/Units 12:19 12:35 WBC (3.98-10.04) K/mm3 RBC (3.98-5.22) M/mm3 Hgb (11.2-15.7) gm/dl Hct (34.1-44.9) % MCV (79.4-94.8) fl MCH (25.6-32.2) pg MCHC (32.2-35.5) g/dl RDW Std Deviation (36.4-46.3) fL Plt Count (182-369) K/mm3 MPV (9.4-12.3) fl Neut % (Auto) (34.0-71.1) % Lymph % (Auto) (19.3-51.7) % [place] % (Auto) (4.7-12.5) % Eos % (Auto) (0.7-5.8) Baso % (Auto) (0.1-1.2) % Neut # (Auto) (1.56-6.13) K/mm3 Lymph # (Auto) (1.18-3.74) K/mm3 [place] # (Auto) (0.24-0.36) K/mm3 Eos # (Auto) (0.04-0.36) K/mm3 Baso # (Auto) (0.01-0.08) K/mm3 Sodium (136-145) mEq/L Potassium (3.5-5.1) mEq/L Chloride (98-107) mEq/L Carbon Dioxide (21-32) mEq/L Anion Gap (5-15) BUN (7-18) mg/dL Creatinine (0.55-1.02) mg/dL Est Cr Clr Drug Dosing mL/min Estimated GFR (MDRD) (>60) mL/min BUN/Creatinine Ratio (14-18) Glucose (74-106) mg/dL POC Glucose 81 (70-105) mg/dL Calcium (8.5-10.1) mg/dL Magnesium (1.8-2.4) mg/dl Total Bilirubin (0.2-1.0) mg/dL AST (15-37) U/L ALT (14-59) U/L Alkaline Phosphatase (46-116) U/L Troponin I (0.00-0.056) ng/mL Total Protein (6.4-8.2) g/dl Albumin (3.4-5.0) g/dl Globulin gm/dL Albumin/Globulin Ratio (1-2) TSH 3rd Generation (0.358-3.74) uIU/mL Urine Color Light yellow (Yellow) Urine Appearance Clear (Clear) Urine pH 6.0 (5.0-8.0) Ur Specific [place] 1.020 (1.005-1.030) Urine Protein Negative (Negative) Urine Glucose (UA) Negative (Negative) Urine Ketones Negative (Negative) Urine Occult Blood Negative (Negative) Urine Nitrite Negative (Negative) Urine Bilirubin Negative (Negative) Urine Urobilinogen 0.2 (0.2-1.0) Ur Leukocyte Esterase Trace H (Negative) Urine RBC Not seen (0-5) /hpf Urine WBC 0-5 (0-5) /hpf Ur Squamous Epith Cells 5-10 H (0-5) /hpf Urine Bacteria Not seen (FEW) /hpf Urine Mucus Not seen (FEW) /hpf Result Diagrams: 07/29/19 11:35 07/29/19 11:35 Problem List Initiated/Reviewed/Updated: Yes Orders Last 24hrs: Active Orders 24 hr Category Date Time Status Patient Status [ADT] Routine ADT 07/29/19 13:52 Active Blood Glucose Check, Bedside [RC] QIDACANDBED Care 07/29/19 17:45 Active Oxygen Therapy [RC] PRN Care 07/29/19 17:37 Active Peripheral IV Care [RC] Q2HR Care 07/29/19 11:13 Active VTE/DVT Education [RC] PER UNIT ROUTINE Care 07/29/19 17:37 Active Vital Signs [RC] Q4HR Care 07/29/19 17:37 Active OT Evaluation and Treatment [CONS] Routine Cons 07/29/19 17:37 Active PT Evaluation and Treatment [CONS] Routine Cons 07/29/19 17:37 Active ADA Diabetic [[place] [employer] Diet] [DIET Diet 07/29/19 Dinner Active ] Echo 2D wo Cont [US] Routine Exams 07/29/19 18:02 Ordered MRA Head Without Contrast [Ang Head wo Cont] [MR] Exams 07/29/19 18:04 Ordered Routine MRA Neck Without Contrast [Ang Neck wo Cont] [MR] Exams 07/29/19 17:41 Ordered Routine CBC WITH AUTO DIFF [HEME] AM Lab 07/30/19 05:11 Ordered COMPREHENSIVE METABOLIC PN,CMP [CHEM] AM Lab 07/30/19 05:11 Ordered GLYCOSYLATED HEMOGLOBIN,HGBA1C [CHEM] AM Lab 07/30/19 05:11 Ordered LIPID PANEL [CHEM] AM Lab 07/30/19 05:11 Ordered MAGNESIUM [CHEM] AM Lab 07/30/19 05:11 Ordered Acetaminophen [Tylenol] Med 07/29/19 17:37 Active 650 mg PO Q4H PRN Allopurinol [Zyloprim] Med 07/30/19 09:00 Active 300 mg PO DAILY Apremilast [Otezla] Med 07/29/19 21:00 Pending 30 mg PO BID Aspirin [Halfprin] Med 07/29/19 17:30 Active 81 mg PO DAILY Furosemide [Lasix] Med 07/30/19 09:00 Active 20 mg PO DAILY Insulin Lispro [HumaLOG] Med 07/29/19 22:00 Active See Protocol SUBCUT QIDACANDBED Levothyroxine Med 07/30/19 06:00 Active 150 mcg PO ACBREAKFAST Losartan [Cozaar] Med 07/30/19 09:00 Ordered 100 mg PO DAILY Metoprolol Succinate [Toprol XL] Med 07/29/19 21:00 Ordered 50 mg PO BEDTIME Ondansetron [Zofran ODT] Med 07/29/19 17:37 Active 4 mg PO Q4H PRN PARoxetine [Paxil] Med 07/29/19 21:00 Active 10 mg PO BEDTIME Rosuvastatin [Crestor] Med 07/30/19 09:00 Ordered 10 mg PO DAILY Sodium Chloride 0.9% [Saline Flush] Med 07/29/19 11:13 Active 10 ml FLUSH ASDIRECTED PRN metFORMIN [Glucophage] Med 07/29/19 21:00 Active 500 mg PO BIDMEALS Peripheral IV Insertion Adult [OM.PC] Routine Oth 07/29/19 11:13 Ordered Resuscitation Status Routine Resus Stat 07/29/19 17:37 Ordered EKG 12 Lead [EK] Stat Ther 07/29/19 11:13 Ordered Medication Orders Acetaminophen (Tylenol) 650 mg PO Q4H PRN PRN Reason: Pain (Mild 1-3)/fever Allopurinol (Zyloprim) 300 mg PO DAILY [facility] Aspirin (Halfprin) 81 mg PO DAILY [facility] Last Admin: 07/29/19 17:55 Dose: 81 mg Furosemide (Lasix) 20 mg PO DAILY [facility] Insulin Human Lispro (Humalog) 0 unit SUBCUT QIDACANDBED [facility]; Protocol Levothyroxine Sodium (Levothyroxine) 150 mcg PO ACBREAKFAST [facility] Losartan Potassium (Cozaar) 100 mg PO DAILY [facility] Metformin HCl (Glucophage) 500 mg PO BIDMEALS [facility] Metoprolol Succinate (Toprol Xl) 50 mg PO BEDTIME [facility] Non-Formulary Medication (Apremilast [Otezla]) 30 mg PO BID [facility] Ondansetron HCl (Zofran Odt) 4 mg PO Q4H PRN PRN Reason: nausea, able to take PO Paroxetine HCl (Paxil) 10 mg PO BEDTIME [facility] Rosuvastatin Calcium (Crestor) 10 mg PO DAILY [facility] Sodium Chloride (Saline Flush) 10 ml FLUSH ASDIRECTED PRN PRN Reason: Keep Vein Open Last Admin: 07/29/19 11:56 Dose: 10 ml Assessment/Plan Comment:: Patient was seen, examined, and evaluated personally and I agree with the above findings, assessment, and plan. We will also hold her sulfonylurea tonight. She states that she takes her glipizide in the evenings. I discussed with her that this is best taken in the mornings and she needs to reevaluate this. She did mention she has been on a diet and lost over 20 pounds in the last 6 weeks. She only takes aspirin on occasion and does not take it regularly. - Mortality Measure Prognosis:: Good
[2019-07-29] MEDS: Aspirin 81 MG Tab.EC PO SCH (17:55)
[2019-07-29] MEDS ORDERED: Non-Formulary Medication 1 Each (Rosuvastatin [Crestor] 20 MG) PO SCH (21:00)
[2019-07-29] MEDS ORDERED: Metoprolol Succinate 50 MG Tab.ER PO SCH (21:00)
[2019-07-29] MEDS ORDERED: Fenofibrate 54 MG Tab PO SCH (21:00)
[2019-07-29] MEDS: metFORMIN 500 MG Tab PO SCH (22:08)
[2019-07-29] MEDS: Insulin Lispro 100 Units/ML 3 ML Vial SUBCUT SCH (22:12)
[2019-07-30] MEDS ORDERED: Levothyroxine 150 MCG Tab PO SCH (06:00)
[2019-07-30] MEDS: metFORMIN 500 MG Tab PO SCH ×2 (06:20→18:34)
[2019-07-30] MEDS: Insulin Lispro 100 Units/ML 3 ML Vial SUBCUT SCH ×3 (06:21→18:34)
[2019-07-30] MEDS ORDERED: Levothyroxine 75 MCG Tab PO SCH (08:00)
[2019-07-30] MEDS: Aspirin 81 MG Tab.EC PO SCH (08:40)
[2019-07-30] MEDS ORDERED: Allopurinol 300 MG Tab PO SCH (09:00)
[2019-07-30] MEDS ORDERED: PRAMIPEXOLE 1 MG PO SCH (09:00)
[2019-07-30] MEDS ORDERED: Non-Formulary Medication 1 Each (Omeprazole 20 MG) PO SCH (09:00)
[2019-07-30] MEDS ORDERED: Non-Formulary Medication 1 Each (Metoprolol Succinate [Metoprolol Succinate] 50 MG) PO SCH (09:00)
[2019-07-30] MEDS ORDERED: Losartan 100 MG Tab PO SCH (09:00)
[2019-07-30] MEDS ORDERED: Rosuvastatin 10 MG Tab PO SCH (09:00)
[2019-07-30] MEDS ORDERED: Magnesium Oxide 400 MG Tab PO SCH (09:00)
[2019-07-30] MEDS ORDERED: APREMILAST 30 MG PO SCH (09:00)
[2019-07-30] MEDS ORDERED: Magnesium Sulfate/Water 4 GM in Premix Bag 1 BAG IV ONE (09:00)
[2019-07-30] MEDS ORDERED: GLIPIZIDE 10 MG PO SCH (09:00)
[2019-07-30] MEDS ORDERED: Furosemide 20 MG Tab PO SCH (09:00)
[2019-07-30] MEDS ORDERED: FENOFIBRIC ACID PO SCH (09:00)
[2019-07-30] MEDS ORDERED: [UNRECOGNIZED DRUG - OTHER] PO SCH (09:00)
[2019-07-30] MEDS ORDERED: LOSARTAN PO SCH (09:00)
[2019-07-30] MEDS ORDERED: Gadobenate Dimeglumine 529 MG/ML 20 ML SDV IVPUSH ONE (10:07)
[2019-07-30] MEDS ORDERED: Sodium Chloride 0.9% 10 ML Syringe FLUSH SCH (10:15)
--- NOTE | 2019-07-30 12:01 | MR ---
MRI brain (without and with intravenous contrast) Technique: T1 sagittal; T2, T2 FLAIR, T1 and diffusion axial; T2 gradient echo and T1-weighted coronal; post-contrast T1 axial and post contrast T1 coronal images were obtained. Comparison: Prior head CT study of 07/29/19. Findings: Ventricles along with basal cisterns and sulci over the convexities are within normal limits for the patient's age. Normal signal void is seen within the major cerebral arteries within the skull base. Minimal scattered areas of increased signal are noted within the subcortical white matter most likely due to minimal small vessel ischemic demyelination change. No acute diffusion abnormalities are seen. No midline shift or mass effect is seen. No abnormal enhancement is seen within the brain parenchyma. Impression: 1. Minimal areas of increased signal within the subcortical white matter most likely due to small vessel ischemic demyelination change. 2. No additional abnormality is seen on MRI study of the brain. Diagnostic code #2
--- NOTE | 2019-07-30 12:24 | MR ---
MR angiogram of neck: Technical abnormality makes this study nondiagnostic. Recommend patient return after 5 days to complete MR angiogram of neck.
--- NOTE | 2019-07-30 16:10 | US ---
Carotid ultrasound: Duplex and color flow imaging was obtained of the carotid arteries. Mild amount of scattered plaque seen primarily within both carotid bulbs. Plaque appears with smooth surface margins and homogeneous in echo characteristics. Right side: CCA has a peak systolic velocity of 1.01 m/sec. ICA has a peak systolic velocity of 1.17 m/sec and peak end-diastolic velocity of 0.42 m/sec. ECA has a peak systolic velocity of 1.00 m/sec. ICA/CCA ratio is 0.9. Vertebral artery has a peak systolic velocity of 0.53. Left side: CCA has a peak systolic velocity of 1.47 m/sec. ICA has a peak systolic velocity of 1.34 m/sec and peak end-diastolic velocity of 0.50 m/sec. ECA has a peak systolic velocity of 0.98 m/sec. ICA/CCA ratio is 0.9. Vertebral artery has a peak systolic velocity of 0.53. Impression: 1. Mild amount of scattered plaque. 2. Velocity measurements within both internal carotid arteries correspond to stenosis in the range of 1-49%. Diagnostic code #2
[2019-07-30 16:27] VITALS: BP 151/77; PULSE 53
--- NOTE | 2019-07-30 16:50 | PCM.DCSUM1 ---
Discharge Summary - Hospital Course HPI Initial Comments: Pt is 54yo female with hx of hyperlipidemia, hypertension, and T2DM who presents today upon admission from ED with complaint of transient ischemic attack. 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 During this time she also felt that she was having difficulty speaking, which her coworkers noticed as well. She describes the feeling as if she could think of the words, but they were not coming out the way she intended. She was able to say short phrases like "I'm fine!", but was otherwise not able to fully communicate. She states she attempted to speak with a customer on the phone and was not able to do so. She noticed she was also not able to write on paper the way she normally does. At this time she felt weakness in her knees, as if they would give out. Pt estimates the entire episode lasted about 30 minutes before she and her significant other came to the emergency room. Pt's symptoms have since resolved. She notes that her left upper lip continues to have a strange sensation that she describes as 'swollen', and she is experiencing sporadic headaches, although this is not unusual for her. She also states that when she walks she feels like she wants to pull to the left. She has family history of cardiovascular complaints, with her mother undergoing triple bypass surgery. Diagnosis: Stroke: No - Discharge Data Discharge Date: 07/30/19 Discharge Disposition: Home, Self-Care 01 Condition: Good - Referral to Home Health Primary Care Physician: Esa Springer MD - Patient Summary/Data Consults: Consultations 07/29/19 17:37 OT Evaluation and Treatment [CONS] Routine PT Evaluation and Treatment [CONS] Routine Recommended Follow-up Testing/Procedures: echocardiogram is pending Hospital Course: patient had an MRI of the brain which showed: Minimal areas of increased signal within the subcortical white matter most likely due to small vessel ischemic demyelination change. There is no acute diffusion abnormality seen. Carotid ultrasound showed mild amount of scattered plaque with velocity measurements within both internal carotid arteries corresponding to stenosis in the range of 1-49%. Telemetry showed no arrhythmias. Echocardiogram is pending. she had no further complications and had complete resolution of her symptoms. She was placed on a low-dose aspirin and told to follow-up with primary care provider. - Patient Instructions Diet: Diabetic Diet Activity: As Tolerated Driving: May Drive Today Showering/Bathing: May Shower Other/Special Instructions: Get magnesium level next week when you see your PCP. - Discharge Plan *PRESCRIPTION DRUG MONITORING PROGRAM REVIEWED*: No *COPY OF PRESCRIPTION DRUG MONITORING REPORT IN PATIENT SHELBY: No Prescriptions/Med Rec: Aspirin [Halfprin] 81 mg PO DAILY #30 tab.ec Magnesium Oxide 400 mg PO BID #10 tablet Home Medications: Home Meds Allopurinol [Zyloprim] 300 mg PO DAILY 04/04/14 [History] Furosemide [Lasix] 20 mg PO DAILY 04/04/14 [History] Levothyroxine Sodium [Levoxyl] 150 mcg PO DAILY 04/04/14 [History] Metoprolol Succinate 50 mg PO BEDTIME 04/04/14 [History] metFORMIN [Glucophage XR] 500 mg PO BID 04/04/14 [History] Rosuvastatin [Crestor] 40 mg PO DAILY 12/28/16 [History] Apremilast [Otezla] 30 mg PO BID 01/07/17 [History] Fenofibric Acid (Choline) [Fenofibric Acid] 145 mg PO BEDTIME 01/07/17 [History] Losartan [Cozaar] 100 mg PO DAILY 01/07/17 [History] glipiZIDE [Glipizide ER] 10 mg PO BEDTIME 01/07/17 [History] PARoxetine [Paxil] 10 mg PO BEDTIME 07/29/19 [History] Aspirin [Halfprin] 81 mg PO DAILY #30 tab.ec 07/30/19 [Rx] Losartan [Cozaar] 100 mg PO DAILY tablet 07/30/19 [Rx] Magnesium Oxide 400 mg PO BID #10 tablet 07/30/19 [Rx] Metoprolol Succinate [Toprol XL 50mg] 50 mg PO BEDTIME tab.er 07/30/19 [Rx] Rosuvastatin [Crestor] 40 mg PO DAILY tablet 07/30/19 [Rx] Patient Handouts: Stroke Prevention, [id number], Transient Ischemic Attack, [id number] Forms: ED Department Discharge Referrals: Esa Springer MD [Primary Care Provider] - ([facility] will call you on Friday to schedule an appointment for about 1 week from today's discharge. If they do not call please call to make an appointment to follow-up. ) - Discharge Summary/Plan Comment DC Time >30 min.: Yes Discharge Summary/Plan Comment: follow-up primary care provider. Counseled on low saturated fat diet, improved blood sugars, weight loss, and exercise. - General Info Date of Service: 07/30/19 Admission Dx/Problem (Free Text: Admission Diagnosis/Problem Admission Diagnosis/Problem TIA, Transient ischemic attack Subjective Update: patient is doing well without any new neurological deficits. Functional Status: Reports: Pain Controlled - Review of Systems General: Reports: No Symptoms HEENT: Reports: No Symptoms Pulmonary: Reports: No Symptoms Cardiovascular: Reports: No Symptoms Gastrointestinal: Reports: No Symptoms Genitourinary: Reports: No Symptoms Neurological: Reports: No Symptoms - Patient Data Vitals - Most Recent: Last Vital Signs Temp 97.9 F 07/30/19 15:18 Pulse 53 L 07/30/19 15:19 Resp 16 07/30/19 15:18 BP 151/77 H 07/30/19 15:19 Pulse Ox 94 L 07/30/19 15:19 Orthostatic Blood Pressure [ 155/82 Standing] Orthostatic Blood Pressure [ 168/77 Sitting] Orthostatic Blood Pressure [ 156/74 Supine] Weight - Most Recent: 190 lb 4.813 oz I&O - Last 24 hours: Intake & Output 07/30/19 07/30/19 07/30/19 06:59 14:59 22:59 Intake Total 500 0 Output Total 1400 Balance -900 0 Lab Results - Last 24 hrs: Laboratory Results - last 24 hr 07/29/19 07/30/19 07/30/19 Range/Units 22:01 05:10 05:10 WBC 5.96 (3.98-10.04) K/mm3 RBC 4.36 (3.98-5.22) M/mm3 Hgb 12.1 (11.2-15.7) gm/dl Hct 37.8 (34.1-44.9) % MCV 86.7 (79.4-94.8) fl MCH 27.8 (25.6-32.2) pg MCHC 32.0 L (32.2-35.5) g/dl RDW Std Deviation 41.6 (36.4-46.3) fL Plt Count 272 (182-369) K/mm3 MPV 10.4 (9.4-12.3) fl Neut % (Auto) 56.4 (34.0-71.1) % Lymph % (Auto) 32.0 (19.3-51.7) % [place] % (Auto) 9.1 (4.7-12.5) % Eos % (Auto) 2.2 (0.7-5.8) Baso % (Auto) 0.3 (0.1-1.2) % Neut # (Auto) 3.36 (1.56-6.13) K/mm3 Lymph # (Auto) 1.91 (1.18-3.74) K/mm3 [place] # (Auto) 0.54 H (0.24-0.36) K/mm3 Eos # (Auto) 0.13 (0.04-0.36) K/mm3 Baso # (Auto) 0.02 (0.01-0.08) K/mm3 Sodium 139 (136-145) mEq/L Potassium 3.5 (3.5-5.1) mEq/L Chloride 104 (98-107) mEq/L Carbon Dioxide 23 (21-32) mEq/L Anion Gap 15.5 H (5-15) BUN 18 (7-18) mg/dL Creatinine 0.6 (0.55-1.02) mg/dL Est Cr Clr Drug Dosing 80.88 mL/min Estimated GFR (MDRD) > 60 (>60) mL/min BUN/Creatinine Ratio 30.0 H (14-18) Glucose 108 H (74-106) mg/dL POC Glucose 101 (70-105) mg/dL Hemoglobin A1c (4.50-6.20) % Calcium 9.9 (8.5-10.1) mg/dL Magnesium 1.4 L (1.8-2.4) mg/dl Total Bilirubin 0.3 (0.2-1.0) mg/dL AST 30 (15-37) U/L ALT 59 (14-59) U/L Alkaline Phosphatase 58 (46-116) U/L Total Protein 7.4 (6.4-8.2) g/dl Albumin 3.8 (3.4-5.0) g/dl Globulin 3.6 gm/dL Albumin/Globulin Ratio 1.1 (1-2) Triglycerides 150 (<150) mg/dL Cholesterol 125 (<200) mg/dL LDL Cholesterol Direct 84 (<100) mg/dL HDL Cholesterol 27.0 L (40-59) mg/dL 07/30/19 07/30/19 07/30/19 Range/Units 05:10 06:13 11:49 WBC (3.98-10.04) K/mm3 RBC (3.98-5.22) M/mm3 Hgb (11.2-15.7) gm/dl Hct (34.1-44.9) % MCV (79.4-94.8) fl MCH (25.6-32.2) pg MCHC (32.2-35.5) g/dl RDW Std Deviation (36.4-46.3) fL Plt Count (182-369) K/mm3 MPV (9.4-12.3) fl Neut % (Auto) (34.0-71.1) % Lymph % (Auto) (19.3-51.7) % [place] % (Auto) (4.7-12.5) % Eos % (Auto) (0.7-5.8) Baso % (Auto) (0.1-1.2) % Neut # (Auto) (1.56-6.13) K/mm3 Lymph # (Auto) (1.18-3.74) K/mm3 [place] # (Auto) (0.24-0.36) K/mm3 Eos # (Auto) (0.04-0.36) K/mm3 Baso # (Auto) (0.01-0.08) K/mm3 Sodium (136-145) mEq/L Potassium (3.5-5.1) mEq/L Chloride (98-107) mEq/L Carbon Dioxide (21-32) mEq/L Anion Gap (5-15) BUN (7-18) mg/dL Creatinine (0.55-1.02) mg/dL Est Cr Clr Drug Dosing mL/min Estimated GFR (MDRD) (>60) mL/min BUN/Creatinine Ratio (14-18) Glucose (74-106) mg/dL POC Glucose 94 117 H (70-105) mg/dL Hemoglobin A1c 7.00 H (4.50-6.20) % Calcium (8.5-10.1) mg/dL Magnesium (1.8-2.4) mg/dl Total Bilirubin (0.2-1.0) mg/dL AST (15-37) U/L ALT (14-59) U/L Alkaline Phosphatase (46-116) U/L Total Protein (6.4-8.2) g/dl Albumin (3.4-5.0) g/dl Globulin gm/dL Albumin/Globulin Ratio (1-2) Triglycerides (<150) mg/dL Cholesterol (<200) mg/dL LDL Cholesterol Direct (<100) mg/dL HDL Cholesterol (40-59) mg/dL 07/30/19 Range/Units 16:07 WBC (3.98-10.04) K/mm3 RBC (3.98-5.22) M/mm3 Hgb (11.2-15.7) gm/dl Hct (34.1-44.9) % MCV (79.4-94.8) fl MCH (25.6-32.2) pg MCHC (32.2-35.5) g/dl RDW Std Deviation (36.4-46.3) fL Plt Count (182-369) K/mm3 MPV (9.4-12.3) fl Neut % (Auto) (34.0-71.1) % Lymph % (Auto) (19.3-51.7) % [place] % (Auto) (4.7-12.5) % Eos % (Auto) (0.7-5.8) Baso % (Auto) (0.1-1.2) % Neut # (Auto) (1.56-6.13) K/mm3 Lymph # (Auto) (1.18-3.74) K/mm3 [place] # (Auto) (0.24-0.36) K/mm3 Eos # (Auto) (0.04-0.36) K/mm3 Baso # (Auto) (0.01-0.08) K/mm3 Sodium (136-145) mEq/L Potassium (3.5-5.1) mEq/L Chloride (98-107) mEq/L Carbon Dioxide (21-32) mEq/L Anion Gap (5-15) BUN (7-18) mg/dL Creatinine (0.55-1.02) mg/dL Est Cr Clr Drug Dosing mL/min Estimated GFR (MDRD) (>60) mL/min BUN/Creatinine Ratio (14-18) Glucose (74-106) mg/dL POC Glucose 100 (70-105) mg/dL Hemoglobin A1c (4.50-6.20) % Calcium (8.5-10.1) mg/dL Magnesium (1.8-2.4) mg/dl Total Bilirubin (0.2-1.0) mg/dL AST (15-37) U/L ALT (14-59) U/L Alkaline Phosphatase (46-116) U/L Total Protein (6.4-8.2) g/dl Albumin (3.4-5.0) g/dl Globulin gm/dL Albumin/Globulin Ratio (1-2) Triglycerides (<150) mg/dL Cholesterol (<200) mg/dL LDL Cholesterol Direct (<100) mg/dL HDL Cholesterol (40-59) mg/dL Med Orders - Current: Current Medications Acetaminophen (Tylenol) 650 mg PO Q4H PRN PRN Reason: Pain (Mild 1-3)/fever Allopurinol (Zyloprim) 300 mg PO DAILY [facility] Last Admin: 07/30/19 08:40 Dose: 300 mg Aspirin (Halfprin) 81 mg PO DAILY [facility] Last Admin: 07/30/19 08:40 Dose: 81 mg Furosemide (Lasix) 20 mg PO DAILY [facility] Last Admin: 07/30/19 08:40 Dose: 20 mg Insulin Human Lispro (Humalog) 0 unit SUBCUT QIDACANDBED [facility]; Protocol Last Admin: 07/30/19 12:06 Dose: Not Given Levothyroxine Sodium (Levothyroxine) 150 mcg PO ACBREAKFAST [facility] Last Admin: 07/30/19 08:42 Dose: 150 mcg Losartan Potassium (Cozaar) 100 mg PO DAILY [facility] Last Admin: 07/30/19 08:40 Dose: 100 mg Magnesium Oxide (Magnesium Oxide) 400 mg PO BID [facility] Last Admin: 07/30/19 09:28 Dose: 400 mg Metformin HCl (Glucophage) 500 mg PO BIDMEALS [facility] Last Admin: 07/30/19 06:20 Dose: Not Given Metoprolol Succinate (Toprol Xl) 50 mg PO BEDTIME [facility] Last Admin: 07/29/19 22:08 Dose: 50 mg Ondansetron HCl (Zofran Odt) 4 mg PO Q4H PRN PRN Reason: nausea, able to take PO Paroxetine HCl (Paxil) 10 mg PO BEDTIME [facility] Last Admin: 07/29/19 22:08 Dose: 10 mg Apremilast [Otezla] (30 Mg Ptom) 0 each PO BID [facility] Last Admin: 07/30/19 08:43 Dose: Not Given Rosuvastatin Calcium (Crestor) 40 mg PO DAILY [facility] Sodium Chloride (Saline Flush) 10 ml FLUSH ASDIRECTED PRN PRN Reason: Keep Vein Open Last Admin: 07/29/19 11:56 Dose: 10 ml Discontinued Medications Fenofibrate (Fenofibrate) 145 mg PO BEDTIME PENNIE Gadobenate Dimeglumine (Multihance) 20 ml IVPUSH ONETIME ONE Stop: 07/30/19 10:08 Last Admin: 07/30/19 14:10 Dose: Not Given Sodium Chloride (Normal Saline) 1,000 mls @ 999 mls/hr IV ONETIME ONE Stop: 07/29/19 12:13 Last Admin: 07/29/19 11:56 Dose: 999 mls/hr Sodium Chloride (Normal Saline) 1,000 mls @ 100 mls/hr IV ONETIME ONE Stop: 07/29/19 23:29 Last Admin: 07/29/19 15:02 Dose: 100 mls/hr Magnesium Sulfate 4 gm/ Premix 50 mls @ 12.5 mls/hr IV ONETIME ONE Stop: 07/30/19 12:59 Last Admin: 07/30/19 09:28 Dose: 12.5 mls/hr Levothyroxine Sodium (Levothyroxine) 150 mcg PO ACBREAKFAST [facility] Last Admin: 07/30/19 06:28 Dose: Not Given Non-Formulary Medication (Fenofibric Acid (Choline) [Fenofibric Acid]) 145 mg PO DAILY [facility] Non-Formulary Medication (Glipizide) 10 mg PO DAILY [facility] Non-Formulary Medication (Losartan [Cozaar]) 1 tab PO DAILY [facility] Non-Formulary Medication (Metoprolol Succinate [Metoprolol Succinate]) 50 mg PO DAILY [facility] Non-Formulary Medication (Omeprazole) 20 mg PO DAILY [facility] Non-Formulary Medication (Pramipexole) 1 mg PO DAILY [facility] Non-Formulary Medication (Rosuvastatin [Crestor]) 20 mg PO BEDTIME [facility] Rosuvastatin Calcium (Crestor) 10 mg PO DAILY [facility] Last Admin: 07/30/19 08:42 Dose: 10 mg Sodium Chloride (Saline Flush) 30 ml FLUSH ASDIRECTED [facility] Stop: 07/30/19 12:00 - Exam Quality Assessment: Reports: Supplemental Oxygen General: Reports: Alert, Oriented HEENT: Reports: Pupils Equal, Pupils Reactive, EOMI, Mucous Membr. Moist/[place] Neck: Reports: Supple Lungs: Reports: Clear to Auscultation, Normal Respiratory Effort Cardiovascular: Reports: Regular Rate, Regular Rhythm Skin: Reports: Warm, Dry, Intact Psy/Mental Status: Reports: Alert, Normal Affect, Normal Mood
[2019-07-31] MEDS ORDERED: Rosuvastatin 10 MG Tab PO SCH (09:00)
== END 2019-07-30 17:25 | disposition home or self-care (01) ==
LOC: JD.ED 10:37 → JD.MS 13:52
PROVIDERS: ADMIT Family Medicine; ATTEND Family Medicine
DX: G45.9 Transient cerebral ischemic attack, unspecified (principal); I10 Essential (primary) hypertension; E78.5 Hyperlipidemia, unspecified; E11.9 Type 2 diabetes mellitus without complications; E78.00 Pure hypercholesterolemia, unspecified; E03.9 Hypothyroidism, unspecified; K21.9 Gastro-esophageal reflux disease without esophagitis; F41.9 Anxiety disorder, unspecified; Z79.899 Other long term (current) drug therapy; Z79.84 Long term (current) use of oral hypoglycemic drugs; Z88.6 Allergy status to analgesic agent
CPT/HCPCS: 36415; 70450; 70548; 70553; 71045; 80053; 80061; 81001; 82962; 83036; 83735; 84443; 84484; 85025; 93005; 93880; 96360; 97161; 97165; 99285; A9270; J3475; J7040; 93010; 96361; 96365; 96366; 99284; G0378

== ENCOUNTER 2025-06-27 00:02 | Emergency (ER) | payer BC ==
[2025-06-27 00:20] LABS: BASOPHILS ABSOLUTE AUTO 0.1 K/mm3 (0.0-0.2); BASOPHILS PERCENT AUTO 0.7 % (0.0-1.0); EOSINOPHILS ABSOLUTE AUTO 0.1 K/mm3 (0.0-0.4); EOSINOPHILS PERCENT AUTO 1.3 % (0.0-6.0); IMMATURE GRAN ABSOLUTE AUTO 0.02 K/mm3 (0.00-0.05); IMMATURE GRAN PERCENT AUTO 0.2 % (0.0-0.4); LYMPHOCYTES ABSOLUTE AUTO 2.2 K/mm3 (1.0-4.8); LYMPHOCYTES PERCENT AUTO 24.7 % (24.0-44.0); MEAN PLATELET VOLUME 9.2 fl (9.4-12.3); MONOCYTES ABSOLUTE AUTO 0.8 K/mm3 (0.0-0.8); MONOCYTES PERCENT AUTO 9.1 % (0.0-8.0); NEUTROPHILS ABSOLUTE AUTO 5.6 K/mm3 (1.8-7.7); NEUTROPHILS PERCENT AUTO 64.0 % (41.0-71.0); NRBC ABSOLUTE 0.00 (0.00-0.02); NRBC PERCENT 0.0 % (0.0-0.2); PLATELET COUNT,PLT 228 K/mm3 (150-400); RED BLOOD CELL COUNT 5.15 M/mm3 (4.10-5.30); WHITE BLOOD CELL COUNT,WBC 8.77 K/mm3 (3.9-11.3)
[2025-06-27 00:45] LABS: A/G RATIO 1.0 (1-2); ALANINE AMINOTRANSFERASE,ALT 53.0 U/L (14-59); ASPARTATE AMNIOTRANSFERASE,AST 14.0 U/L (15-37); BILIRUBIN TOTAL 0.7 mg/dL (0.2-1.0); BLOOD UREA NITROGEN,BUN 14.0 mg/dL (7-18); CARBON DIOXIDE,CO2 29.0 mEq/L (21-32); CHLORIDE,CL 99.0 mEq/L (98-107); CREATININE 0.9 mg/dL (0.55-1.02); EST CRCL DRUG DOSING (CG) 52.57 mL/min; ESTIMATED GFR 73.0 mL/min (>60); GLUCOSE RANDOM 143.0 mg/dL (70-99); POTASSIUM,K 3.8 mEq/L (3.5-5.1); PROTEIN TOTAL,TP 7.9 g/dl (6.4-8.2); SODIUM,NA 137.0 mEq/L (136-145)
[2025-06-27] MEDS: Ketorolac 15 MG/ML SDV IVPUSH ONE (00:48)
[2025-06-27 00:51] LABS: APPEARANCE,URINE CLEAR (Clear); GLUCOSE,URINE 2+ (Negative); OCCULT BLOOD,URINE NEGATIVE (Negative)
[2025-06-27 00:57] LABS: SQUAMOUS EPITHELIAL CELLS,UR 0-5 /hpf (0-5)
[2025-06-27] MEDS: Sodium Chloride 0.9% 10 ML Syringe FLUSH PRN (01:34)
[2025-06-27] MEDS ORDERED: Sodium Chloride 0.9% 10 ML Syringe FLUSH PRN (01:34)
[2025-06-27] MEDS: Iopamidol 612 MG/ML 100 ML Bottle IVPUSH ONE (01:34)
[2025-06-27 02:23] VITALS: BP 166/90
[2025-06-27 03:43] VITALS: PULSE 97
== END 2025-06-27 03:39 | disposition home or self-care (01) ==
LOC: JD.ED 00:02
DX: K85.90 Acute pancreatitis without necrosis or infection, unspecified (principal); E78.00 Pure hypercholesterolemia, unspecified; I10 Essential (primary) hypertension; K21.9 Gastro-esophageal reflux disease without esophagitis; E11.9 Type 2 diabetes mellitus without complications; E03.9 Hypothyroidism, unspecified; Z86.16 Personal history of COVID-19; Z91.048 Other nonmedicinal substance allergy status; Z88.8 Allergy status to other drugs, medicaments and biological substances; Z79.899 Other long term (current) drug therapy; Z79.82 Long term (current) use of aspirin; Z90.49 Acquired absence of other specified parts of digestive tract
CPT/HCPCS: 36415; 71045; 74177; 80053; 81001; 83690; 84484; 85025; 93005; 96361; 96374; 99284; A9270; J1885; J7030; Q9967; 93010